=== PATIENT | male | born 1930 | race Caucasian/White ===

== ENCOUNTER 2019-04-28 18:03 | Observation (INO) ==
[2019-04-28 18:26] LABS: White Blood Count 7.8 K/mm3 (4.8-10.8)
[2019-04-28 18:27] LABS: Basophils # 0.1 K/mm3 (0-0.2); Basophils % 0.6 % (0.1-2.0); Eosinophils # 0.5 K/mm3 (0.0-0.4); Hematocrit 42.3 % (42.0-52.0); Hemoglobin 14.3 g/dL (14.1-18.0); Lymphocytes # 4.6 K/mm3 (0.7-4.5); Lymphocytes % 25.2 % (10-50); Mean Corpuscular HGB Conc 33.8 g/dL (31.8-35.4); Mean Corpuscular Volume 94.1 fl (80-94); Mean Platelet Volume 7.9 fl (7.4-10.4); Neutrophils # 7.8 K/mm3 (1.8-7.8); Neutrophils % 59.1 % (37.0-80.0); Platelet Count 175 K/mm3 (142-424); Red Cell Distribution Width 14.4 % (11.5-17.5)
[2019-04-28 18:35] LABS: Anion Gap 9.5 mEq/L (5-15)
[2019-04-28 18:36] LABS: Albumin Level 3.7 gm/dL (3.4-5.0); Bilirubin,Direct 0.1 mg/dL (0.0-0.2); Bilirubin,Indirect 0.1 mg/dL (0.0-0.9); Bilirubin,Total 0.2 mg/dL (0.2-1.0); Total Protein,Serum 7.5 gm/dL (6.4-8.2)
--- NOTE | 2019-04-28 18:39 | Emergency Department Note ---
ED Disposition Clinical Impression: Chest pain, Unstable angina pectoris Disposition: Admitted As Inpatient Condition on Discharge: Serious Referrals: Guille Shukla MD [Primary Care Provider] - Time of Disposition: 21:05 - Critical Care Critical Care Time: No Attestation: On 04/28/19, the high probability of a clinically significant, sudden or life threatening deterioration of the following system(s) required my full and direct attention, intervention and personal management. The time I documented below is in addition to time spent performing reported procedures but includes the following listed in this critical care notation. Medical Decision Making - Medical Records Medical records reviewed: Yes: I reviewed the patient's medical records. - Gianluca Inquiry Pt receiving controlled substance: No Vital Signs: 04/28/19 18:04 04/28/19 18:21 04/28/19 18:54 Temperature 99.1 F Temperature Source Oral Pulse Rate [Right Radial] 57 L 56 L 57 L Respiratory Rate 20 Blood Pressure [Right Arm] 148/82 H 172/103 H 181/89 H Blood Pressure Mean [Right Arm] 104 126 119 02 Sat by Pulse Oximetry 98 92 L 98 Oxygen Delivery Method Room Air 04/28/19 19:33 04/28/19 20:00 04/28/19 20:30 Temperature Temperature Source Pulse Rate [Right Radial] 59 L 134 H 64 Respiratory Rate Blood Pressure [Right Arm] 151/83 H 137/73 145/78 H Blood Pressure Mean [Right Arm] 105 94 100 02 Sat by Pulse Oximetry 98 98 97 Oxygen Delivery Method - Lab Data Lab results reviewed: Yes: I reviewed the patient's lab results. Lab Results 04/28/19 18:11: WBC 7.8, RBC 4.50 L, Hgb 14.3, Hct 42.3, MCV 94.1 H, MCH 31.8 H, MCHC 33.8, RDW 14.4, Plt Count 175, MPV 7.9, Neut % (Auto) 59.1, Lymph % (Auto) 25.2, [place] % (Auto) 8.0, Eos % (Auto) 6.0, Baso % (Auto) 0.6, Neut # (Auto) 7.8, Lymph # (Auto) 4.6 H, [place] # (Auto) 2.0 H, Eos # (Auto) 0.5 H, Baso # (Auto) 0.1 04/28/19 18:11: Sodium 137, Potassium 4.5, Chloride 99, Carbon Dioxide 33 H, Anion Gap 9.5, BUN 18, Creatinine 1.23, Estimated Creat Clear 53, Estimated GFR 56 L, Est GFR ( Amer) 67, Glucose 112 H, Calcium 9.0, Total Bilirubin 0.2, Direct Bilirubin 0.1, Indirect Bilirubin 0.1, AST 9 L, ALT 20, Alkaline Phosphatase 103, Troponin I 0.05, Total Protein 7.5, Albumin 3.7 04/28/19 18:19: Urine Color Yellow, Urine Appearance Clear, Urine pH 7.0, Ur Specific [place] 1.015, Urine Protein Negative, Urine Glucose (UA) Negative, Urine Ketones Negative, Urine Blood Negative, Urine Nitrate Negative, Urine Bilirubin Negative, Urine Urobilinogen 0.2, Ur Leukocyte Esterase Negative, Urine WBC Occasional, Ur Squamous Epith Cells Occasional, Urine Bacteria Trace 04/28/19 20:08: Troponin I 0.14 H Result diagrams: 04/28/19 18:11 04/28/19 18:11 Orders (Tests/Meds): ED MEDICATIONS Discontinued Medications Generic Name Dose Route Start Last Admin Trade Name Freq PRN Reason Stop Dose Admin Aspirin 324 mg 04/28/19 18:51 04/28/19 18:54 Aspirin 81mg Chewable Tablet PO 04/28/19 18:52 324 mg ONCE ONE Administration ORDERS Category Date Time Status XR chest portable Stat Exams 04/28/19 18:08 Taken - ECG Data Tracing #1 I reviewed this ECG and interpreted as documented below: Sinus bradycardia with first-degree AV block at a ventricular rate of 58 bpm. ECG initial impression date: 04/28/19 ECG initial impression time: 18:04 Normal Sinus Rhythm: No Arrhythmias present: sinus adriano Conduction abnormalities present: other (Left axis deviation) - Physician Consults Physician Consulted: Dr. Sneed windows migration technician for Dr. Shukla. Time: 20:57 Reason -: Admission Comment/Response: Discussed patient's audible acute coronary syndrome and his DNR status with Dr. Sneed who directed medical treatment for the patient and admission. - BIRGIT Score for Non-Stemi Age of Patient: 80-89 years old Heart Rate: 50-69 bpm Systolic Blood Pressure: 140-159 mmHg Serum Creatinine: 1.20-1.59 mg/dl CHF [place] Class: I-No CHF Other Risk Factors: None Non-Stemi Risk Score: 128 Chest Pain HPI - General Chief Complaint: Chest Pain Stated Complaint: CHEST PAIN Time Seen by Provider: 04/28/19 18:04 Mode of Arrival: EMS Limitations: HARD OF HEARING Description of Symptoms (Recalled from ER Triage Doc. by RN): PT PRESENTS TO ED WITH C/O CHEST PAIN AND SHORTNESS OF BREATH - History of Present Illness HPI narrative: 88-year-old obese male presents with complaints of chest pain and shortness of breath. MD complaint: chest pain Onset (ago): hour(s) (1) Duration: constant Activity at onset: during rest Pain location: substernal Quality: aching Pain radiation: none Relieving factors: nothing Exacerbating factors: nothing Associated symptoms: dyspnea - Related Data Home Medications Medication Instructions Recorded Confirmed tuberculin PPD 5 unit INTRADERMA ONCE ml 11/25/18 02/17/19 Previous Rx's Medication Instructions Recorded Lactobacillus acidophilus 75 1 cap PO TID #90 cap 07/14/18 million cell-pectin 100 mg capsule carvedilol 25 mg tablet 25 mg PO BID #60 tab 07/14/18 diphenhydramine HCl 25 mg capsule 12.5 mg PO Q6H PRN #30 cap 07/14/18 doxazosin 4 mg tablet 4 mg PO QHS #90 tab 07/14/18 furosemide 20 mg tablet 20 mg PO Q OTHER DAY #30 tab 07/14/18 hydrocodone 5 mg-acetaminophen 325 1 tab PO BID PRN #60 tab 07/15/18 mg tablet ibuprofen 600 mg tablet 600 mg PO QID PRN #120 tab 07/15/18 levothyroxine 112 mcg tablet 112 mcg PO DAILY #30 tab 07/15/18 oxybutynin chloride 5 mg tablet 2.5 mg PO QHS #30 tab 07/15/18 polyethylene glycol 3350 17 17 g PO DAILY PRN #119 g 07/15/18 gram/dose oral powder potassium chloride 8 mEq 8 meq PO BID #30 cap 07/15/18 capsule,extended release sertraline 50 mg tablet 50 mg PO DAILY #30 tab 07/15/18 simethicone 125 mg capsule 125 mg PO BID PRN #120 cap 07/15/18 tramadol 50 mg tablet 50 mg PO BID PRN #60 tab 07/15/18 Allergies Allergy/AdvReac Type Severity Reaction Status Date / Time No Known Allergies Allergy Verified 04/28/19 18:[address] [facility] History - Hepatitis A Screen Drug use history?: No High risk sexual behaviors?: No History of sexually transmitted infection?: No Currently employed?: No Childcare worker?: No Do you have indoor plumbing?: Yes Do you have electricity?: Yes Attestation statement:: This patient has been screened for Hepatitis A risk factors. Medical History: Reports:: Atrial Fibrillation, BPH, Cancer, Cerebrovascular Accident, Depression, Hypertension Other Medical History: Reports: Arthritis, Hypothyroidism, Thyroid Disease Comment: nontramatic interacerebal hemorrhage,aphasia, decrease mobility,sleep apnea. Laterality Cases: Right: Arthroscopy Shoulder, Total Hip Replacement Other Surgeries: Yes: No Previous Surgery, Cardiac Catheterization, Colonoscopy Amputation: No Fractures: No Comment: Back Surgery, Left Elbow - Social History Smoking Status: Former smoker Alcohol Intake: never Occupational Status: disabled Housing: senior care - Psychiatric History Pschychiatric History:: Reports:: Depression Family Hx:: Cancer ROS Obtained: Yes Systems reviewed as appropriate & no additional complaints - Constitutional Constitutional: Reports fatigue, Reports malaise - Eyes Eyes: Reports system reviewed and no additional complaints, except as docu - ENT Ears, Nose, Mouth, and Throat: Reports system reviewed and no additional complaints, except as docu - Cardiovascular Cardiovascular: Reports chest pain - Respiratory Respiratory: Yes dyspnea - Gastrointestinal Gastrointestingal: Reports: system reviewed and no additional complaints, except as docu - Genitourinary Male Genitourinary: Reports system reviewed and no additional complaints, except as docu - Musculoskeletal Musculoskeletal: Reports system reviewed and no additional complaints, except as docu - Integumentary/Breasts Skin/Breast: Reports system reviewed and no additional complaints, except as docu - Neurologic Neurologic: Reports system reviewed and no additional complaints, except as docu - Endocrine Endocrine: Reports system reviewed and no additional complaints, except as docu - Hematologic/Lymphatic Henatologic/Lymphatic: Reports system reviewed and no additional complaints, except as docu - Allergic/Immunologic Allergic/Immunologic: Reports system reviewed and no additional complaints, except as docu Physical Exam - General General appearance: alert, in no apparent distress - Head Head exam: atraumatic, normocephalic, normal inspection - Eye Eye exam: Present: normal appearance, PERRL, EOMI - ENT ENT exam: Present: normal exam, normal oropharynx, mucous membranes moist, normal external ear exam - Neck Neck exam: Present: normal inspection, full ROM, trachea midline. Absent: meningismus, lymphadenopathy - Chest Chest inspection: Present: normal inspection, symmetric chest wall rise. Absent: tenderness - Respiratory Respiratory exam: Present: normal lung sounds bilaterally. Absent: respiratory distress - Cardiovascular Cardiovascular exam: Present: regular rate, normal rhythm. Absent: JVD - Abdominal Exam Abdominal exam: Present: soft, normal bowel sounds. Absent: distention, tenderness, guarding - Extremities Exam Extremities exam: Present: normal inspection, full ROM, normal capillary refill. Absent: calf tenderness - Back Exam Back exam: Present: normal inspection. Absent: tenderness - Neurological Exam Neurological exam: Present: alert, oriented X3, CN II-XII intact. Absent: motor sensory deficit - Psychiatric Psychiatric exam: Present: anxious - Skin Skin exam: Present: warm, dry, intact, normal color
[2019-04-28 18:44] LABS: Microscopic, Urine URINE MICROSCOPIC (MICROSCOPIC)
[2019-04-28 18:52] LABS: Appearance,Urine CLEAR (Clear); Bilirubin,Urine Negative (Negative); Blood, Urine Negative (Negative); Color,Urine YELLOW (Yellow); Glucose,Urine (UA) Negative (Negative); Ketones,Urine Negative (Negative); Leukocyte Esterase,Urine Negative (Negative); Protein,Urine Negative (Negative); Specific Gravity, Urine 1.015 (1.005-1.030); Urobilinogen,Urine 0.2 EU/dl (0.2)
[2019-04-28 19:31] LABS: Bacteria,Urine Trace /lpf; Squamous Epithelial Cell,Urine Occasional #/hpf (0-5); WBC,Urine Occasional #/hpf (0-3)
[2019-04-29 07:02] LABS: Albumin Level 3.3 gm/dL (3.4-5.0); Bilirubin,Total 0.3 mg/dL (0.2-1.0); Calcium 8.8 mg/dL (8.5-10.1); Chol/HDL Ratio 3.2 (1-3.5); Globulin 3.4 gm/dl (1.3-3.2); Phosphorous 2.7 mg/dL (2.4-4.9); Total Protein,Serum 6.7 gm/dL (6.4-8.2)
[2019-04-29 07:05] LABS: Basophils % 0.5 % (0.1-2.0); Eosinophils # 0.4 K/mm3 (0.0-0.4); Eosinophils % 4.9 % (0.1-12.0); Hematocrit 39.9 % (42.0-52.0); Hemoglobin 13.2 g/dL (14.1-18.0); Lymphocytes # 1.6 K/mm3 (0.7-4.5); Lymphocytes % 22.1 % (10-50); Mean Corpuscular Volume 92.6 fl (80-94); Monocytes # 0.5 K/mm3 (0.1-1.0); Monocytes % 6.8 % (1.7-9.3); Neutrophils # 4.7 K/mm3 (1.8-7.8); Neutrophils % 65.6 % (37.0-80.0); Platelet Count 177 K/mm3 (142-424); Red Blood Count 4.31 M/mm3 (4.60-6.20); Red Cell Distribution Width 14.3 % (11.5-17.5); White Blood Count 7.2 K/mm3 (4.8-10.8)
--- NOTE | 2019-04-29 08:52 | Pharmacy Consult Notes ---
[facility] Pharmacy VTE Monitoring - Patient Demographics Admission date: 04/28/19 Report Date: 04/29/19 Time: 08:52 Allergies/Adverse Reactions: Patient Allergies No Known Allergies Allergy (Verified 04/28/19 18:08) Height: 1.75 m Weight: 85.5 kg Patient Problems: Current Active Problems Chest pain (Acute) Unstable angina pectoris (Acute) - VTE Risk Labs: VTE Related Lab Results Hgb 13.2 g/dL (14.1-18.0) L 04/29/19 06:03 Hct 39.9 % (42.0-52.0) L 04/29/19 06:03 Plt Count 177 K/mm3 (142-424) 04/29/19 06:03 BUN 15 mg/dL (7-18) 04/29/19 06:03 Creatinine 1.03 mg/dL (0.70-1.30) 04/29/19 06:03 Estimated Creat Clear 60 mL/min (50-200) 04/29/19 06:03 Was VTE Risk Assessment Performed: Yes VTE Score: 9 VTE Risk Level: Moderate Risk Clinical Trial Participant: No - Prophylaxis VTE Prophylaxis Ordered?: Yes Types of VTE Prophylaxis: TEDS Knee High, Pharmacological Pharmacologic Type: Enoxaparin
--- NOTE | 2019-04-29 09:58 | H&P/Discharge Summary ---
General - General Admission date:: 04/28/19 Discharge date: 04/29/19 *Admission Date: 04/28/19 *Chief complaint: Chest pain *History of present illness: 88-year-old white male with history of stroke, with disabling hemiparesis, history of recurrent/chronic atrial fibrillation in the past, who has been a resident of the [facility] over the past several weeks. His primary physician has been Dr. 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 He has been doing well at the [facility] until yesterday when he began to complain of some chest pain. He did not wish to be transferred to the hospital initially, but Tylenol did not relieve his pain and he was transferred to the emergency department for further work-up. In the emergency department he was found to have elevated troponins and diagnosis of non-STEMI was made. Admitted to hospital for further evaluation and diagnostic testing as indicated. [facility] History I have reviewed the patient's past medical history: Yes Medical History: Reports:: Atrial Fibrillation, BPH, Cancer, Cerebrovascular Accident, Depression, Hypertension Denies:: Diabetes Mellitus Type 1, Diabetes Mellitus Type 2, MRSA *Have you ever received a pneumonia vaccine?: Yes *Have you received a flu vaccine this season?: Yes Other Medical History: Reports: Arthritis, Cataracts, Hypothyroidism, Thyroid Disease Laterality Cases: Right: Arthroscopy Shoulder, Total Hip Replacement Other Surgeries: Yes: No Previous Surgery, Cardiac Catheterization, Colonoscopy Amputation: No Fractures: No - *Social History Educational Level: Completed High School Smoking Status: Former smoker Alcohol Intake: never *Occupational Status:: disabled Housing: senior living *Travel in the last 8 weeks: None - Psychiatric History Pschychiatric History:: Reports:: Depression Family Hx:: Cancer Review of Systems - Review of Systems Review of systems:: pertinent systems reviewed and negative unless documented be low This morning patient is pain-free. Denies respiratory, cardiac or GI complaints. Other than his neurologic changes from his stroke and inability to ambulate on his own he has no complaints. Exam Vital signs and Labs for Last 24 Hours: Temp Pulse Resp BP Pulse Ox 98.5 F 61 17 148/68 H 94 L 04/29/19 07:47 04/29/19 07:47 04/29/19 07:47 04/29/19 07:47 04/29/19 08:00 Laboratory Results - last 24 hr 04/28/19 18:11: WBC 7.8, RBC 4.50 L, Hgb 14.3, Hct 42.3, MCV 94.1 H, MCH 31.8 H, MCHC 33.8, RDW 14.4, Plt Count 175, MPV 7.9, Neut % (Auto) 59.1, Lymph % (Auto) 25.2, [place] % (Auto) 8.0, Eos % (Auto) 6.0, Baso % (Auto) 0.6, Neut # (Auto) 7.8, Lymph # (Auto) 4.6 H, [place] # (Auto) 2.0 H, Eos # (Auto) 0.5 H, Baso # (Auto) 0.1 04/28/19 18:11: Sodium 137, Potassium 4.5, Chloride 99, Carbon Dioxide 33 H, Anion Gap 9.5, BUN 18, Creatinine 1.23, Estimated Creat Clear 53, Estimated GFR 56 L, Est GFR ( Amer) 67, Glucose 112 H, Calcium 9.0, Total Bilirubin 0.2, Direct Bilirubin 0.1, Indirect Bilirubin 0.1, AST 9 L, ALT 20, Alkaline Phosphatase 103, Troponin I 0.05, Total Protein 7.5, Albumin 3.7 04/28/19 18:19: Urine Color Yellow, Urine Appearance Clear, Urine pH 7.0, Ur Specific [place] 1.015, Urine Protein Negative, Urine Glucose (UA) Negative, Urine Ketones Negative, Urine Blood Negative, Urine Nitrate Negative, Urine Bilirubin Negative, Urine Urobilinogen 0.2, Ur Leukocyte Esterase Negative, Urine WBC Occasional, Ur Squamous Epith Cells Occasional, Urine Bacteria Trace 04/28/19 20:08: Troponin I 0.14 H 04/29/19 00:28: Troponin I 0.55 H 04/29/19 03:05: Troponin I 0.67 H 04/29/19 06:03: WBC 7.2, RBC 4.31 L, Hgb 13.2 L, Hct 39.9 L, MCV 92.6, MCH 30.6, MCHC 33.0, RDW 14.3, Plt Count 177, MPV 8.0, Neut % (Auto) 65.6, Lymph % (Auto) 22.1, [place] % (Auto) 6.8, Eos % (Auto) 4.9, Baso % (Auto) 0.5, Neut # (Auto) 4.7, Lymph # (Auto) 1.6, [place] # (Auto) 0.5, Eos # (Auto) 0.4, Baso # (Auto) 0.0 04/29/19 06:03: Sodium 139, Potassium 4.0, Chloride 102, Carbon Dioxide 31, Anion Gap 10.0, BUN 15, Creatinine 1.03, Estimated Creat Clear 60, Estimated GFR 68, Est GFR ( Amer) 82 D, Glucose 98, Calcium 8.8, Phosphorus 2.7, Magnesium 2.1, Total Bilirubin 0.3, AST 12 L D, ALT 18, Alkaline Phosphatase 83, Troponin I 0.68 H, Total Protein 6.7, Albumin 3.3 L D, Globulin 3.4 H, Albumin/Globulin Ratio 1.0 L, Triglycerides 217 H, Cholesterol 219 H, LDL Cholesterol 108, VLDL Cholesterol 43 H, HDL Cholesterol 68 H, Cholesterol/HDL Ratio 3.2 I & O for Last 24 hours: Intake & Output 04/26/19 04/27/19 04/28/19 04/29/19 11:59 11:59 11:59 11:59 Intake Total 318 / 318 Output Total 1125 / 1125 Balance -807 / -807 Weight 188 lb 7.924 oz Narrative: Patient is awake, alert, oriented x3. Cranial nerves intact. 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 Heart rate regular with occasional ectopic beats. Lungs are clear in the anterior will, abdomen soft nontender. ENT exam clear. Hospital Course Hospital Course: Patient was admitted overnight. Ruled in for non-STEMI. No significant EKG changes otherwise. Patient has had no further pain. This morning I discussed with patient treatment options. He does not wish any further work-up, and does not wish heart catheterization or other intervention. Given his DNR status and advanced age I think this is very reasonable. I discussed this with his daughter by phone and she is also aware of this and is in agreement with this plan as well. Plan will be to discharge back to the [facility], I will add low-dose long-acting nitrates, continue his beta-devendra and add low-dose aspirin. He will continue to maintain his DNR status and I would recommend using PRN nitroglycerin for chest pain instead of transferring back to hospital given his ongoing wishes about lack of desire for an aggressive work-up. Results Labs on day of discharge: Labs from last 24 hours 04/29/19 04/29/19 04/29/19 06:03 06:03 03:05 WBC 7.2 RBC 4.31 L Hgb 13.2 L Hct 39.9 L MCV 92.6 MCH 30.6 MCHC 33.0 RDW 14.3 Plt Count 177 MPV 8.0 Neut % (Auto) 65.6 Lymph % (Auto) 22.1 [place] % (Auto) 6.8 Eos % (Auto) 4.9 Baso % (Auto) 0.5 Neut # (Auto) 4.7 Lymph # (Auto) 1.6 [place] # (Auto) 0.5 Eos # (Auto) 0.4 Baso # (Auto) 0.0 Sodium 139 Potassium 4.0 Chloride 102 Carbon Dioxide 31 Anion Gap 10.0 BUN 15 Creatinine 1.03 Estimated Creat Clear 60 Estimated GFR 68 Est GFR ( Amer) 82 D Glucose 98 Calcium 8.8 Phosphorus 2.7 Magnesium 2.1 Total Bilirubin 0.3 Direct Bilirubin Indirect Bilirubin AST 12 L D ALT 18 Alkaline Phosphatase 83 Troponin I 0.68 H 0.67 H Total Protein 6.7 Albumin 3.3 L D Globulin 3.4 H Albumin/Globulin Ratio 1.0 L Triglycerides 217 H Cholesterol 219 H LDL Cholesterol 108 VLDL Cholesterol 43 H HDL Cholesterol 68 H Cholesterol/HDL Ratio 3.2 Urine Color Urine Appearance Urine pH Ur Specific [place] Urine Protein Urine Glucose (UA) Urine Ketones Urine Blood Urine Nitrate Urine Bilirubin Urine Urobilinogen Ur Leukocyte Esterase Urine WBC Ur Squamous Epith Cells Urine Bacteria 04/29/19 04/28/19 04/28/19 00:28 20:08 18:19 WBC RBC Hgb Hct MCV MCH MCHC RDW Plt Count MPV Neut % (Auto) Lymph % (Auto) [place] % (Auto) Eos % (Auto) Baso % (Auto) Neut # (Auto) Lymph # (Auto) [place] # (Auto) Eos # (Auto) Baso # (Auto) Sodium Potassium Chloride Carbon Dioxide Anion Gap BUN Creatinine Estimated Creat Clear Estimated GFR Est GFR ( Amer) Glucose Calcium Phosphorus Magnesium Total Bilirubin Direct Bilirubin Indirect Bilirubin AST ALT Alkaline Phosphatase Troponin I 0.55 H 0.14 H Total Protein Albumin Globulin Albumin/Globulin Ratio Triglycerides Cholesterol LDL Cholesterol VLDL Cholesterol HDL Cholesterol Cholesterol/HDL Ratio Urine Color Yellow Urine Appearance Clear Urine pH 7.0 Ur Specific [place] 1.015 Urine Protein Negative Urine Glucose (UA) Negative Urine Ketones Negative Urine Blood Negative Urine Nitrate Negative Urine Bilirubin Negative Urine Urobilinogen 0.2 Ur Leukocyte Esterase Negative Urine WBC Occasional Ur Squamous Epith Cells Occasional Urine Bacteria Trace 04/28/19 04/28/19 18:11 18:11 WBC 7.8 RBC 4.50 L Hgb 14.3 Hct 42.3 MCV 94.1 H MCH 31.8 H MCHC 33.8 RDW 14.4 Plt Count 175 MPV 7.9 Neut % (Auto) 59.1 Lymph % (Auto) 25.2 [place] % (Auto) 8.0 Eos % (Auto) 6.0 Baso % (Auto) 0.6 Neut # (Auto) 7.8 Lymph # (Auto) 4.6 H [place] # (Auto) 2.0 H Eos # (Auto) 0.5 H Baso # (Auto) 0.1 Sodium 137 Potassium 4.5 Chloride 99 Carbon Dioxide 33 H Anion Gap 9.5 BUN 18 Creatinine 1.23 Estimated Creat Clear 53 Estimated GFR 56 L Est GFR ( Amer) 67 Glucose 112 H Calcium 9.0 Phosphorus Magnesium Total Bilirubin 0.2 Direct Bilirubin 0.1 Indirect Bilirubin 0.1 AST 9 L ALT 20 Alkaline Phosphatase 103 Troponin I 0.05 Total Protein 7.5 Albumin 3.7 Globulin Albumin/Globulin Ratio Triglycerides Cholesterol LDL Cholesterol VLDL Cholesterol HDL Cholesterol Cholesterol/HDL Ratio Urine Color Urine Appearance Urine pH Ur Specific [place] Urine Protein Urine Glucose (UA) Urine Ketones Urine Blood Urine Nitrate Urine Bilirubin Urine Urobilinogen Ur Leukocyte Esterase Urine WBC Ur Squamous Epith Cells Urine Bacteria DS: Diagnosis - Discharge Diagnosis (1) Non-STEMI (non-ST elevated myocardial infarction) Status: Acute Discharge Plan - Patient Discharge Instructions ACTIVITY: Continue current activity DIET: continue same diet Patient Instructions: DI for Angina, DI for Acute Pain -- Adult, DI for Chest Pain - Follow up Plan Follow up with: Maura Guillne APRN [Nurse Practitioner] - Disposition: er [facility] Home Medications: Home Medications Medication Instructions Recorded Confirmed Type hydrocodone 5 mg-acetaminophen 325 1 tab PO BID PRN #60 tab 07/15/18 04/28/19 Rx mg tablet tramadol 50 mg tablet 50 mg PO BID PRN #60 tab 07/15/18 04/28/19 Rx Doxazosin Mesylate [Cardura 4mg 4 mg PO HS 04/28/19 04/28/19 History Tab] Levothyroxine Sodium 112 mcg PO DAILY 04/28/19 04/28/19 History [Levothyroxine 112mcg (0.112mg) Tab] Oxybutynin Chloride [Ditropan 5mg 2.5 mg PO HS 04/28/19 04/28/19 History tablet] carvediloL [Carvedilol 25mg Tab] 25 mg PO BID 04/28/19 04/28/19 History Aspirin [Aspirin 81mg EC Tab] 81 mg PO DAILY #30 tablet. 04/29/19 Rx Isosorbide Dinitrate [Isordil 10mg 10 mg PO DAILY #30 tablet 04/29/19 Rx tablet] Sertraline HCl [Zoloft 100mg 100 mg PO DAILY 04/29/19 04/29/19 History tablet] Prescriptions/Medication Reconciliation: New Aspirin [Aspirin 81mg EC Tab] 81 mg PO DAILY #30 tablet. Isosorbide Dinitrate [Isordil 10mg tablet] 10 mg PO DAILY #30 tablet Continued hydrocodone 5 mg-acetaminophen 325 mg tablet 1 tab PO BID PRN #60 tab PRN Reason: pain tramadol 50 mg tablet 50 mg PO BID PRN #60 tab PRN Reason: pain Doxazosin Mesylate [Cardura 4mg Tab] 4 mg PO HS carvediloL [Carvedilol 25mg Tab] 25 mg PO BID Levothyroxine Sodium [Levothyroxine 112mcg (0.112mg) Tab] 112 mcg PO DAILY Sertraline HCl [Zoloft 100mg tablet] 100 mg PO DAILY Oxybutynin Chloride [Ditropan 5mg tablet] 2.5 mg PO HS - Problem Reconciliation Problems Reviewed?: Yes
--- NOTE | 2019-04-30 11:21 | Electrocardiograph Report ---
APPROVED REPORT Exam: Resting ECG HR:58 bpm ECG Measurements Heart Rate 58 AXES [place] 260 P 58 QRSd 88 QRS -55 QT 442 T16 QTc 433 <Conclusion> Sinus bradycardia with 1st degree AV block Left axis deviation Old inferior changes Abnormal ECG Electronically signed by : Demarcus Castanon, 04/29/2019 09:47:08
--- NOTE | 2019-05-01 08:10 | Electrocardiograph Report ---
APPROVED REPORT Exam: Resting ECG HR:62 bpm ECG Measurements Heart Rate 62 AXES [place] 254 P 60 QRSd 94 QRS -42 QT 454 T4 QTc 460 <Conclusion> Sinus rhythm with 1st degree AV block Left axis deviation Incomplete right bundle branch block Abnormal ECG Electronically signed by : Demarcus Castanon, 05/01/2019 08:10:26
== END 2019-04-29 11:13 ==
LOC: 2ND 18:03 → ER 18:03 → 2ND 21:56
PROVIDERS: ADMIT Internal Medicine Adolescent Medicine; ATTEND Internal Medicine Adolescent Medicine
CPT/HCPCS: 36415; 71010; 71045; 80048; 80053; 80061; 80076; 81001; 83735; 84100; 84484; 85025; 93005; 99285; G0378